=== PATIENT | female | born 2000 | race Caucasian/White ===

== ENCOUNTER 2024-01-28 11:02 | Emergency (ER) | payer MEDICAID, OTHER ==
[~2024-01-28] VITALS: Ht 165.1 cm; Wt 62.2 kg
[2024-01-28 12:04] VITALS: BP 107/68; PULSE 100; RESP 16; TEMP 98.9; O2SAT 98
[2024-01-28] MEDS ORDERED: ACET500T58 PO (12:44)
[2024-01-28] MEDS ORDERED: AMOX500T3 PO (12:44)
[2024-01-28] MEDS: cefTRIAXone SOD 500 MG VL IM ONE (12:59)
[2024-01-28] MEDS: KETOROLAC TROMETH 30 MG/ML 1ML VIAL IM ONE (13:00)
== END 2024-01-28 13:17 | disposition home or self-care (01) ==
LOC: ER 11:02
DX: K02.9 Dental caries, unspecified (principal)
CPT/HCPCS: 96372; 99284; J0696; J1885